=== PATIENT | female | born 1985 | race Caucasian/White ===

== ENCOUNTER → 2017-08-05 | Outpatient (CLI) | payer OTHER | END | disposition home or self-care (01) | LOC: RAH 15:05 | PROVIDERS: ATTEND Physical Medicine & Rehabilitation | DX: M54.5 Low back pain (principal) | CPT/HCPCS: 72100 ==

== ENCOUNTER → 2017-12-03 | Outpatient (CLI) | payer OTHER | END | disposition home or self-care (01) | LOC: RAH 10:43 | PROVIDERS: ATTEND Physician Assistant Medical | DX: M54.16 Radiculopathy, lumbar region (principal) | CPT/HCPCS: 72148 ==

== ENCOUNTER 2018-04-04 18:26 | Emergency (ER) | payer OTHER ==
[2018-04-04] MEDS ORDERED: DiphenhydrAMINE HCL 50 MG/ML VIAL ONE (19:06)
[2018-04-04] MEDS ORDERED: SODIUM CHLORIDE 0.9% 1000ML 1,000 ML IV ONE (19:06)
[2018-04-04] MEDS ORDERED: PROCHLORPERAZINE EDISYLATE 10 MG/2 ML VIAL ONE (19:07)
[2018-04-04] MEDS ORDERED: DEXAMETHASONE SOD PHOSPHATE 4 MG/ML 5ML VIAL ONE (19:07)
== END 2018-04-04 20:02 | disposition home or self-care (01) ==
LOC: EDH 18:26
DX: G43.009 Migraine without aura, not intractable, without status migrainosus (principal); M32.9 Systemic lupus erythematosus, unspecified; G89.29 Other chronic pain; M54.5 Low back pain
CPT/HCPCS: 96361; 96374; 96375; 99283; J0780; J1100; J1200; J7030

== ENCOUNTER 2020-01-04 19:02 | Emergency (ER) | payer OTHER ==
[2020-01-04 19:35] LABS: BASOPHILS % (AUTO) 0.5 % (0.0-5.0); EOSINOPHILS % (AUTO) 1.3 % (0.0-8.0); HEMATOCRIT 40.5 % (36-48); MEAN CORPUSCULAR HEMOGLOBIN 29.3 pg (27.0-33.0); MEAN CORPUSCULAR HGB CONC 33.1 g/dL (32.0-36.0); MEAN CORPUSCULAR VOLUME 88.6 fL (79-99); MONOCYTES % (AUTO) 9.5 % (3.0-13.0); NEUTROPHILS % (AUTO) 53.4 % (40.0-77.0); PLATELET COUNT (AUTO) 266 K/uL (130-400); RED BLOOD CELL COUNT(AUTO) 4.57 MIL/uL (4.00-5.50); RED CELL DISTRIBUTION WIDTH 12.4 % (11.0-15.5); WHITE BLOOD COUNT (AUTO) 8.8 K/uL (4.8-10.8)
[2020-01-04 19:46] LABS: CREATININE 1.1 mg/dL (0.5-1.5); POTASSIUM 3.5 mmol/L (3.5-5.1)
[2020-01-04 19:51] LABS: ALBUMIN 3.8 g/dL (3.5-5.0); BILIRUBIN,TOTAL 0.3 mg/dL (0.2-1.0); TOTAL PROTEIN, SERUM 6.8 g/dL (6.0-8.3)
[2020-01-04] MEDS ORDERED: IOHEXOL-350 75 ML VIAL IV ONE (21:03)
== END 2020-01-04 22:44 | disposition home or self-care (01) ==
LOC: EDH 19:02
DX: R07.89 Other chest pain (principal); G89.29 Other chronic pain; Z90.49 Acquired absence of other specified parts of digestive tract; Z79.899 Other long term (current) drug therapy; Z88.7 Allergy status to serum and vaccine
CPT/HCPCS: 36415; 71045; 71275; 80053; 81025; 84484; 85025; 85378; 93005; 99285; Q9967

== ENCOUNTER 2020-09-21 22:41 | Emergency (ER) | payer OTHER ==
[~2020-09-21] VITALS: Ht 172.7 cm; Wt 147.4 kg
[2020-09-21 23:44] VITALS: BP 180/109
[2020-09-22 00:01] LABS: BASOPHILS % (AUTO) 0.7 % (0.0-5.0); EOSINOPHILS % (AUTO) 1.6 % (0.0-8.0); HEMATOCRIT 43.1 % (36-48); LYMPHOCYTES % (AUTO) 31.5 % (21.0-51.0); MEAN CORPUSCULAR HEMOGLOBIN 28.9 pg (27.0-33.0); MEAN CORPUSCULAR HGB CONC 31.8 g/dL (32.0-36.0); MEAN CORPUSCULAR VOLUME 90.9 fL (79-99); MONOCYTES % (AUTO) 9.8 % (3.0-13.0); NEUTROPHILS % (AUTO) 55.9 % (40.0-77.0); PLATELET COUNT (AUTO) 248 K/uL (130-400); RED BLOOD CELL COUNT(AUTO) 4.74 MIL/uL (4.00-5.50); RED CELL DISTRIBUTION WIDTH 12.9 % (11.0-15.5); WHITE BLOOD COUNT (AUTO) 9.6 K/uL (4.8-10.8)
[2020-09-22 00:02] LABS: BILIRUBIN,URINE Negative (NEGATIVE); COLOR,URINE Yellow (YELLOW); GLUCOSE, URINE (UA) Negative (NEGATIVE); KETONES,URINE Negative (NEGATIVE); LEUKOCYTE ESTERASE ,URINE Negative (NEGATIVE); NITRATE,URINE Negative (NEGATIVE); OCCULT BLOOD,URINE Negative (NEGATIVE); PROTEIN,URINE Negative (NEGATIVE); UROBILINOGEN,URINE 0.2 mg/dL (0.2-1.0)
[2020-09-22 00:04] LABS: APPEARANCE,URINE CLEAR (CLEAR)
[2020-09-22 00:05] LABS: HCG,QUAL RESULT NEGATIVE (NEGATIVE)
[2020-09-22 00:16] LABS: POTASSIUM 3.5 mmol/L (3.5-5.1)
[2020-09-22 00:20] LABS: ALBUMIN 3.8 g/dL (3.5-5.0); BILIRUBIN,TOTAL 0.4 mg/dL (0.2-1.0)
[2020-09-22 00:56] VITALS: BP 168/106
[2020-09-22] MEDS ORDERED: FENTANYL CITRATE PF 50 MCG/1 ML 2ML VIAL ONE (01:19)
[2020-09-22] MEDS ORDERED: ORPHENADRINE CITRATE 30 MG/ML ML ONE (01:19)
[2020-09-22] MEDS ORDERED: ORPHENADRINE CITRATE 30 MG/ML ML IV ONE (01:30)
[2020-09-22] MEDS ORDERED: FENTANYL CITRATE PF 50 MCG/1 ML 2ML VIAL IVP ONE (01:30)
[2020-09-22 01:45] VITALS: BP 147/83
[2020-09-22 02:42] VITALS: BP 142/83
[2020-09-22] MEDS ORDERED: KETOROLAC 30MG VIAL (30MG/ML) IV ONE (03:30)
[2020-09-22 03:45] VITALS: BP 148/82
[2020-09-22 04:29] VITALS: BP 147/83
[2020-09-22] MEDS ORDERED: SOLU-MEDROL 40MG VIAL IVP ONE (05:00)
[2020-09-22] MEDS ORDERED: SOLU-MEDROL 40MG VIAL ONE (05:16)
[2020-09-22 05:43] VITALS: BP 130/75
== END 2020-09-22 05:52 | disposition home or self-care (01) ==
LOC: EDH 22:41
DX: R10.11 Right upper quadrant pain (principal); E66.9 Obesity, unspecified; M32.9 Systemic lupus erythematosus, unspecified; M79.7 Fibromyalgia; Z90.49 Acquired absence of other specified parts of digestive tract; N20.0 Calculus of kidney; Z79.1 Long term (current) use of non-steroidal anti-inflammatories (NSAID); F32.9 Major depressive disorder, single episode, unspecified; R11.0 Nausea; Z68.41 Body mass index [BMI] 40.0-44.9, adult
CPT/HCPCS: 36415; 71046; 74176; 76705; 80053; 81003; 81025; 82150; 83690; 85025; 85378; 96374; 96375; 99285; J1885; J2360; J2920; J3010

== ENCOUNTER 2020-12-10 23:43 | Emergency (ER) | payer OTHER ==
[~2020-12-10] VITALS: Ht 172.7 cm; Wt 140.6 kg
[2020-12-10 23:59] VITALS: BP 156/110
[2020-12-11 01:00] VITALS: BP 156/98
[2020-12-11 01:26] LABS: BASOPHILS % (AUTO) 0.2 % (0.0-5.0); HEMATOCRIT 39.9 % (36-48); MEAN CORPUSCULAR HEMOGLOBIN 30.2 pg (27.0-33.0); MEAN CORPUSCULAR HGB CONC 33.3 g/dL (32.0-36.0); MEAN CORPUSCULAR VOLUME 90.5 fL (79-99); MONOCYTES % (AUTO) 11.2 % (3.0-13.0); NEUTROPHILS % (AUTO) 66.9 % (40.0-77.0); PLATELET COUNT (AUTO) 238 K/uL (130-400); RED BLOOD CELL COUNT(AUTO) 4.41 MIL/uL (4.00-5.50); RED CELL DISTRIBUTION WIDTH 13.2 % (11.0-15.5); WHITE BLOOD COUNT (AUTO) 10.3 K/uL (4.8-10.8)
[2020-12-11 01:41] LABS: ALBUMIN 3.8 g/dL (3.5-5.0); BILIRUBIN,TOTAL 0.2 mg/dL (0.2-1.0); POTASSIUM 3.8 mmol/L (3.5-5.1); TOTAL PROTEIN, SERUM 6.9 g/dL (6.0-8.3)
[2020-12-11 02:03] LABS: APPEARANCE,URINE Clear (CLEAR); BILIRUBIN,URINE Small (NEGATIVE); COLOR,URINE Dark Yellow (YELLOW); GLUCOSE, URINE (UA) TRACE mg/dL (NEGATIVE); KETONES,URINE Trace mg/dL (NEGATIVE); LEUKOCYTE ESTERASE ,URINE Negative (NEGATIVE); NITRATE,URINE Negative (NEGATIVE); OCCULT BLOOD,URINE Negative (NEGATIVE); PH,URINE 6.5 (5.0-8.0); PROTEIN,URINE POS 1+ mg/dL (NEGATIVE)
[2020-12-11 02:11] LABS: BACTERIA,URINE Many /HPF (None Seen); MUCUS,URINE Many LPF (None Seen); RBC,URINE 0-1 /HPF (0-1)
[2020-12-11 02:15] VITALS: BP 149/88
[2020-12-11] MEDS: CLONIDINE HCL 0.2 MG TABLET PO ONE ×2 (02:19)
[2020-12-11] MEDS: NIFEDIPINE 10 MG CAP PO SCH (04:43)
[2020-12-11] MEDS: NIFEDIPINE 10 MG CAP ONE (04:44)
[2020-12-11 05:04] VITALS: BP 146/90
[2020-12-11] MEDS ORDERED: NIFE10 PO (05:05)
== END 2020-12-11 05:23 | disposition home or self-care (01) ==
LOC: EDH 23:43
DX: I10 Essential (primary) hypertension (principal); M32.9 Systemic lupus erythematosus, unspecified; M79.7 Fibromyalgia; Z79.899 Other long term (current) drug therapy
CPT/HCPCS: 36415; 80053; 81001; 85025; 87088; 93005

== ENCOUNTER → 2022-06-11 | Outpatient (CLI) | payer OTHER, MEDICARE ==
[~2022-06-11] MED LIST: NIFE10 PO
== END | disposition home or self-care (01) ==
LOC: RAH 14:33
PROVIDERS: ATTEND Physician Assistant Medical
DX: M51.27 Other intervertebral disc displacement, lumbosacral region (principal)
CPT/HCPCS: 72148